=== PATIENT | male | born 1955 | race Caucasian/White ===

== ENCOUNTER 2023-02-09 07:14 | Day surgery (SDC) | payer MEDICARE, BC, SELFPAY ==
[2023-02-09] VITALS (13 sets, daily range): BP systolic 101–147; BP diastolic 57–95; PULSE 59–88; RESP 12–18; TEMP 36.1–36.7; O2SAT 94–98; BMI 24.0
[2023-02-09] MEDS: LACTATED RINGERS 1000 ML 1,000 ML 75 ML IV ×2 (07:00→08:45)
[2023-02-09] MEDS: LACTATED RINGERS 1000 ML 1,000 ML 100 ML IV (07:20)
[2023-02-09] MEDS: SODIUM CHLORIDE 0.9 % (FLUSH) 10 ML SYRINGE IVF (07:46)
--- NOTE | 2023-02-09 08:09 | PM.GSPRC ---
Operative Note Pre-op diagnosis: Bilateral inguinal hernias Post-op diagnosis: Same Type of Procedure: Laparoscopic bilateral inguinal hernia repair with mesh Indications: The patient is a 67-year-old male who developed right groin pain. Exam for hernia was equivocal, however CT scan showed bilateral fat containing inguinal hernias. After discussion of options he elected to proceed with repair of both. Procedure Description: After discussing the risks and benefits of the procedure, the patient signed informed consent.? The operative site was marked and the patient was brought to the operating room and placed on the operating table in supine position.? Care was taken to pad the patient's pressure points.?? The patient was then intubated by anesthesia.?? The operative site was then prepped and draped in the usual sterile fashion.? A time-out was then performed. A curvilinear incision was made below the umbilicus. Dissection was carried down to subcutaneous tissue until the anterior rectus fascia was encountered. This was incised off the midline on the right. The rectus muscle fibers were then retracted exposing the posterior fascia. A port with a dissecting balloon was then introduced into the pre-preperitoneal space. This was inflated under direct vision. The balloon was deflated, removed, and a 10 mm working port was placed. The space was insufflated and a 10 mm 30-degree scope was then advanced into the space. Two 5 mm ports were placed in the midline under direct vision. Dissection began on the right side. Juan C's ligament and the pubic bone were exposed medially. Following this, dissection was carried out laterally. Small indirect defect was noted. The sac was dissected free from the cord structures using a combination of sharp and blunt dissection. The cord lipoma was reduced. Attention was turned to the left, where dissection was carried out in the same fashion and again a small indirect hernia with a moderate cord lipoma were identified. These were both reduced. Once the sacs were completely reduced, a piece of Bard 3DMax mesh for each side was placed into the abdomen. They was positioned with the marker pointed medially. A Tacker was used to attach the mesh medially at Juan C's ligament and 1 tack laterally with care to avoid the epigastric vessels and stay above the inguinal ligament. The mesh did overlap in the midline. Once this was completed, the preperitoneal space desufflated under direct vision to ensure the mesh laid flat. 10 mL of 0.5% Marcaine were instilled into the preperitoneal space through a port. The ports were removed. The fascia from the infraumbilical port was closed with 0 Vicryl. The skin incisions were closed with absorbable subcuticular suture. Sterile dressings were then applied. The scrotum was examined to ensure that both testicles were down. Instrument sponge and needle counts were correct at the end of the case. The patient was then woken and transported to the recovery area in stable condition. ? The patient tolerated the procedure well. Findings: Small indirect bilateral inguinal hernias with moderate-sized cord lipomas. Anesthesia: GETA Surgeon: Nadege Truong MD Estimated blood loss (mL): 10 Condition: stable Disposition: PACU Date of procedure: 02/09/23
[2023-02-09] MEDS: CEFAZOLIN 2 GM INJ IVP (08:10)
--- NOTE | 2023-02-09 08:23 | W.ANESCHARGE ---
Anesthesia Charges Start Date/Time Anesthesia Start Date: 02/09/23 Anesthesia Start Time: 08:03 Stop Date/Time Anesthesia Stop Date: 02/09/23 Anesthesia Stop Time: 09:32
[2023-02-09] MEDS: BUPIVACAINE 0.25% 30 ML INJECTION (09:13)
--- NOTE | 2023-02-09 09:23 | SUR.OPER ---
DEBRIEF COMPLETED WITH SURGEON BEFORE LEAVING THE ROOM. PROCEDURE, EBL, WOUND CLASS, DRESSINGS, AND MEDICATIONS CONFIRMED.
--- NOTE | 2023-02-09 09:47 | W.ANESCHARGE ---
Anesthesia Charges Start Date/Time Anesthesia Start Date: 02/09/23 Anesthesia Start Time: 08:03 Stop Date/Time Anesthesia Stop Date: 02/09/23 Anesthesia Stop Time: 09:32
== END 2023-02-09 11:30 | disposition home or self-care (01) ==
PROVIDERS: PCP Family Medicine; Visit Provider Surgery
PROC: (CPT 49650; principal; 2023-02-09 08:15)
DX: K40.20 Bilateral inguinal hernia, without obstruction or gangrene, not specified as recurrent (principal)
CPT/HCPCS: 49650; 00830; 00860; C1781; J0330; J0665; J0690; J1100; J2250; J2371; J2405; J2704; J3010; J3490; J7120